=== PATIENT | male | born 1985 | race African-American/Black ===

== ENCOUNTER 2019-01-15 11:53 | Emergency (ER) | payer BC ==
[~2019-01-15] VITALS: Ht 175.3 cm; Wt 81.6 kg
[~2019-01-15 11:53] MED LIST: MAGN296S9 PO; POLY17PO29 PO
[2019-01-15 12:25] VITALS: BP 124/70
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
== END 2019-01-15 13:41 | disposition home or self-care (01) ==
LOC: ER 11:53
DX: S40.852A Superficial foreign body of left upper arm, initial encounter (principal); W45.8XXA Other foreign body or object entering through skin, initial encounter; Y93.89 Activity, other specified; Y92.89 Other specified places as the place of occurrence of the external cause; Y99.8 Other external cause status
CPT/HCPCS: 99281

== ENCOUNTER 2021-04-07 23:07 | Emergency (ER) | payer BC ==
[~2021-04-07 23:07] MED LIST changes: +MAGN296S68 PO; -MAGN296S9 PO
== END 2021-04-08 01:08 | disposition left against medical advice (07) ==
LOC: ER 23:07
DX: R22.0 Localized swelling, mass and lump, head (principal); R07.0 Pain in throat; Z53.21 Procedure and treatment not carried out due to patient leaving prior to being seen by health care provider